=== PATIENT | female | born 1975 | race African-American/Black ===

== ENCOUNTER 2024-06-23 19:12 | Inpatient (IN) | payer OTHER ==
[~2024-06-23] VITALS: Ht 180.3 cm; Wt 132.3 kg
--- NOTE | 2024-06-23 19:40 | ED.PDOC ---
SOB-HPI HPI Comments HPI: Poor Historian. 49 y.o female presents to the ED for a chief complaint of SOB, wheezing, and dry cough that presented 2-3 days ago. Patient reports SOB worsens when laying flat and complains of upper back pain as well. Patient presents to the ED with SPO2 of 95% room air. She denies any nausea, vomiting, diarrhea, chills, chest pain. Patient tried her son's inhaler last night. Patient ambulates with a cane due to hx of neuropathy. Vitals Temperature: 99.6 F Heart rate: 115 Blood Pressure: 126/86 SPO2: 95% RA RR: 24 Past medical history: DM, HTN, peripheral neuropathy Past surgical history: REVIEW OF SYSTEMS: CONSTITUTIONAL: Denies acute: fever, diaphoresis, chills, generalized weakness. HEAD: Denies acute: headache, photophobia Eyes: Denies acute: Double vision, vision loss, eye pain, eye discharge. EARS: Denies acute: tinnitus, hearing loss, ear discharge, ear pain, THROAT: Denies acute: sore throat, swelling, difficulty swallowing , pain with swallowing, change in voice. NECK: Denies acute: neck pain, neck swelling, stiff neck. HEART: Denies acute : chest pain, palpitations, LUNGS: Denies acute: hemoptysis ABDOMEN: Denies acute: abdominal pain, Nausea, Vomiting, diarrhea, melena , hematemesis, hematochezia SKIN: Denies acute: rash, redness, lesions, itchiness. EXTREMITIES: Denies acute: calf pain, numbness, tingling, weakness, denies pain in extremity. Denies acute: Low back pain. Neuro: Denies acute: focal neurological deficit, motor or sensory focal neurological deficit, tremors, seizure like activity, confusion, dizziness, change in mental status, loss of bowel or bladder function, cauda equina like symptoms. : Denies acute: dysuria, hematuria, flank pain, increase in urinary frequency. PSYCH: Denies acute: hallucination, suicidal ideation, homicidal ideation. FEMALE: Denies acute: abnormal vaginal bleeding, foul odor, unusual discharge. PHYSICAL EXAM: General: no acute distress, awake and alert. Head: normocephalic, atraumatic. Neck: supple, trachea is midline, no swelling. Throat: Normal phonation. Eyes:, no erythema, no purulent discharge, no proptosis, no icterus. Heart: regular tachycardic, no significant murmur appreciated. Lungs: no apparent respiratory distress, Able to speak in full sentences. No wheezing, noted bilateral rhonchi, no crackles. No stridors Abdomen: non tender to palpation, non distended, soft, no guarding, no rebound, + bowel sounds. Obese. Neuro: Awake, Alert, oriented to name, self, situation, follows commands GCS=15. Speech is normal. Skin: no petechia, no purpura, no cyanosis, non-pale, not jaundice. Lower extremities: --no - Pitting edema no deformity, no focal swelling, no calf TTP. Makes eye contact. moves all four extremities. Face: no apparent facial droop. Ambulating in the ED with a cane and a wheelchair. ED course: As of this time 9:45 p.m.,, patient CMP is still pending. Time Seen by MD: 19:30 Reviewed notes: Nurses Notes, Allergies Information Source: Patient Mode of Arrival: Wheelchair Severity: Moderate Past Medical History PAST MEDICAL HISTORY: DM, HTN Past Medical History (Other): peripheral neuropathy Was a procedure done? Was a procedure done?: No Differential Dx Differential Diagnosis: Asthma, Bronchitis, Pneumonia, Respiratory Distress, URI, Other (DDx include ACS, unstable angina, anxiety, PE, pneumothroax, neoplasm, cardiac ischemia, COPD, asthma, CHF, pleural effusion, tobacco abuse, pneumonia, hypoxia, hypercapnia, anemia., infection/sepsis., pulmonary edema. Asthma, Cardiac tamponade, infection.) X-Ray, Labs, Meds, VS Vital Signs Date Time Temp Pulse Resp B/P (MAP) Pulse Ox O2 Delivery O2 Flow Rate FiO2 06/23/24 21:19 114 18 107/68 (81) 96 06/23/24 21:17 107/68 06/23/24 21:06 Room Air* 0 21 06/23/24 20:36 122 16 149/86 (107) 100 06/23/24 19:56 20 98 Cool Aerosol 8 N/A 06/23/24 19:47 116 06/23/24 19:30 99.6 115 24 126/68 (87) 95 Lab Test 06/23/24 23:12 06/23/24 21:54 06/23/24 21:40 06/23/24 21:11 Range/Units Troponin I High Sensitivity 16 18 </=34 ng/L Beta HCG, Quantitative 0.5 L 1.5-4.2 mIU/mL Blood Gas Specimen Type Arterial Blood Gas Sample Site Right radial Blood Gas Patient Temperature 37.0 Arterial Blood Date Drawn [id number] Arterial Blood pH 7.414 7.350-7.450 Arterial Blood Partial Pressure CO2 36.7 32.0-45.0 mmHg Arterial Blood Partial Pressure O2 59.2 L 83.0-108.0 mmHg Arterial Blood HCO3 23.0 21.0-28.0 mmol/L Arterial Blood Oxygen Saturation 89.6 L 94.0-98.0 % Arterial Blood Base Excess -1.2 -2.0-3.0 mmol/L Arterial Blood Oxyhemoglobin 88.3 L 94.0-98.0 % Arterial Blood Carboxyhemoglobin 1.0 0.5-1.5 % Arterial Blood Methemoglobin 0.4 0.0-1.5 % Renato Test Modified Blood Gas Total Hemoglobin 13.20 12.0-16.0 g/dL Blood Gas Liter Flow 0.00 Blood Gas Modality Room air Blood Gas Spontaneous Rate 18 FiO2 % 21.0 Specimen Drawn By Moe willis rt Urine Color Light-yellow Yellow Urine Clarity Clear Clear Urine pH 5.0 5.0-9.0 Urine Specific [place] 1.016 1.001-1.035 Urine Protein Negative Negative Urine Ketones Negative Negative Urine Blood Negative Negative /uL Urine Nitrite Negative Negative Urine Bilirubin Negative Negative Urine Urobilinogen Normal Negative mg/dL Urine Leukocyte Esterase Negative Negative /uL Urine RBC 1 0 - 4 /hpf Urine WBC 2 0 - 5 /hpf Urine Squamous Epithelial Cells Few <5 /hpf Urine Bacteria Few H None Seen /hpf Urine Mucus Few None Seen Urine Glucose Normal Normal mg/dL D-Dimer, Quantitative 0.30 0.0-0.49 mg/L FEU Sodium Level 139 136-145 mmol/L Potassium Level 4.4 3.5-5.1 mmol/L Chloride Level 108 H 98-107 mmol/L Carbon Dioxide Level 23 20-31 mmol/L Anion Gap 8 5-15 Blood Urea Nitrogen 7 L 9-23 mg/dL Creatinine 0.79 0.550-1.02 mg/dL Glomerular Filtration Rate Calc 91 >90 mL/min BUN/Creatinine Ratio 8.9 L 10.0-20.0 Serum Glucose 139 H 74-106 mg/dL Calcium Level 10.5 H 8.7-10.4 mg/dL Total Bilirubin 0.3 0.2-1.0 mg/dL Aspartate Amino Transferase (AST) 26 13-40 U/L Alanine Aminotransferase (ALT) 22 7-40 U/L Alkaline Phosphatase 77 46-116 U/L Total Protein 7.0 5.7-8.2 g/dL Albumin 4.4 3.2-4.8 g/dL Test 06/23/24 20:15 06/23/24 19:38 Range/Units White Blood Count 9.6 4.4-10.8 10^3/uL Red Blood Count 4.30 4.0-5.20 10^6/uL Hemoglobin 12.2 12.2-16.2 g/dL Hematocrit 37.4 36.0-46.0 % Mean Corpuscular Volume 87.0 80.0-100.0 fL Mean Corpuscular Hemoglobin 28.4 28.0-32.0 pg Mean Corpuscular Hemoglobin Concent 32.7 32.0-36.0 g/dL Red Cell Distribution Width 15.3 H 11.8-14.3 % Platelet Count 348 140-450 10^3/uL Mean Platelet Volume 10.3 6.9-10.8 fL Neutrophils (%) (Auto) 70.2 37.0-80.0 % Lymphocytes (%) (Auto) 18.0 10.0-50.0 % Monocytes (%) (Auto) 9.0 0.0-12.0 % Eosinophils (%) (Auto) 2.3 0.0-7.0 % Basophils (%) (Auto) 0.5 0.0-2.0 % Neutrophils # (Auto) 6.8 1.6-8.6 10 ^3/uL Lymphocytes # (Auto) 1.7 0.4-5.4 10 ^3/uL Monocytes # (Auto) 0.9 0-1.3 10 ^3/uL Eosinophils # (Auto) 0.2 0-0.8 10 ^3/uL Basophils # (Auto) 0.1 0-0.2 10 ^3/uL Nucleated Red Blood Cells 0.0 % Lactic Acid Level 2.3 *H 0.4-2.0 mmol/L Troponin I High Sensitivity 19 </=34 ng/L B-Type Natriuretic Peptide 12.23 0-100 pg/mL Influenza Type A Antigen Negative Negative Influenza Type B Antigen Negative Negative SARS-CoV-2 Antigen (Rapid) Negative NEGATIVE [facility] [id number] [place] [address] Ph: [phone] DIAGNOSTIC IMAGING Diagnostic Imaging Report : [id number] Signed PATIENT: JEFFERY COOK ACCT: [id number] UNIT: [id number] : 1975 LOC: ER ROOM / BED: / AGE / SEX: 49 / F ADM STATUS: REG ER SERVICE 26 ORDERING PHYSICIAN: RACHELLE DIAMOND DO PROCEDURE(s): CXRP - CHEST PORTABLE REASON: sob ORDER NUMBER(s): [id number], ACCESSION NUMBER(s): [id number] CHEST RADIOGRAPH Indication: sob Technique: Single frontal view of the chest was obtained Comparison: None FINDINGS: Lines and Tubes: None Lungs: Diffuse interstitial prominence. Linear densities of the right lower lung zone. Indistinctness of the left hemidiaphragm. No pneumothorax. Cardiomediastinal contours: Mild cardiomegaly. Bones: No acute osseous abnormality. Cervical fixation hardware is noted. IMPRESSION: Mild pulmonary vascular congestion with right lower lung zone atelectasis. Possible trace left-sided pleural effusion. ATED BY: ELI EPREZ DO DICTATED DATE/TIME: 06/23/242034 SIGNED BY: ELI PEREZ DO SIGNED DATE/TIME: 06/23/242034 CC: Time of 1ST Reevaluation: 19:36 Reevaluation 1ST: Unchanged Patient Education/Counseling: Diagnosis, Treatment Family Education/Counseling: Other Comments Patient presented with the above HPI. shortness of breath-workup was initiated. patient was found with the above mentioned diagnosis. the following medications were ordered: methylprednisolone, ipratropium med neb, albuterol the following tests were ordered: rapid influenza A&B tests, covid19 test, troponin, urinalysis, lactic acid, CMP, CBC, BNP, EKG, CXR Patient ED course and VS have been stabilized. Patient has been reassessed in the ED and remained in a stable condition. Pertinent incidental findings were discussed with the patient and/or family. Patient/family voices understanding and is agreeable with plan. Patient has been observed in the ED adequate length of time to insure improvement/stability. Escalation of care considered: Consideration of escalation to observation or admission Patient was ADMITTED to the medicine team for further evaluation and treatment of their presentation. All the reports of any imaging studies that were ordered by myself were reviewed by myself. Departure 1 Departure Time of Disposition: 21:44 Impression: Primary Impression: Dyspnea Additional Impressions: Abnormal EKG T wave inversion in EKG Hypoxemia Disposition: ADMITTED INPATIENT Admit to: Tele Condition: Guarded e-Prescriptions Gabapentin (Gabapentin) 300 Mg Cap 1 CAP PO TID for 30 Days, #90 CAP Prov: ASPEN GONSALVES RESIDENT 06/25/24 Levofloxacin Hemihydrate (LEVOFLOXACIN) 750 Mg Tab 1 TAB PO DAILY for 5 Days, #5 TAB Prov: ASPEN GONSALVES RESIDENT 06/25/24 Discharged With: Self Critical Care Note Critical Care Time?: Yes (45 min-critical care time only) I personally scribed for RACHELLE DIAMOND DO ([email or web address]) on 06/23/24 at 19:40. El ectronically submitted by Yael Wolfe ([facility]). I personally scribed for RACHELLE DIAMOND J DO ([email or web address]) on 06/23/24 at 20:07. Elect ronically submitted by Yael Wolfe ([facility]). I personally scribed for RACHELLE DIAMOND J DO ([email or web address]) on 06/23/24 at 20:27. Electronically submitted by Koby Daniels ([email or web address]). I personally scribed for RACHELLE DIAMOND J DO ([email or web address]) on 06/23/24 at 23:25. Elect ronically submitted by Koby Daniels ([email or web address]). I personally scribed for RACHELLE DIAMOND J DO ([email or web address]) on 06/23/24 at 23:26. El ectronically submitted by Koby Daniels ([email or web address]). I personally scribed for CHICO DIAMONDE J DO ([email or web address]) on 06/24/24 at 20:50. Electronically submitted by Koby Daniels ([email or web address]). RACHELLE DIAMOND DO Jun 23, 2024 19:40
--- NOTE | 2024-06-23 19:49 | ECG ---
[facility] Test Date: 2024-06-23 Test Time: 19:47:56 Pat Name: JEFFERY COOK Department: DARA Room: [address] [place] [address] Gender: F Design Drafter Chief: NARGIS : 1975 Requested By: RACHELLE DIAMOND Order Number: [id number] Reading MD: Michael Krishnan Measurements Intervals Plato Rate: 116 P: 75 IN: 175 QRS: 86 QRSD: 78 T: -68 QT: 293 QTc: 407 Interpretive Statements Sinus tachycardia Nonspecific T abnormalities, inferior leads Baseline wander in lead(s) V2 Electronically Signed On 06-26-2024 16:33:36 PST by Michael Krishnan Please click the below link to view image of tracing.
[2024-06-23] MEDS: IPRATROPIUM BROM 0.5 MG/2.5ML INH SOL NEB ONE (19:55)
[2024-06-23] MEDS: ALBUTEROL SULF 2.5 MG/0.5ML(0.5%) NEB SOLN NEB ONE (19:55)
[2024-06-23] MEDS: methylPREDNISolone SOD SUCC 125 MG/2 ML VL IV ONE (20:19)
[2024-06-23 20:27] LABS: Basophils # (auto) 0.1 10 ^3/uL (0-0.2); Basophils % (auto) 0.5 % (0.0-2.0); Eosinophils # (auto) 0.2 10 ^3/uL (0-0.8); Eosinophils % (auto) 2.3 % (0.0-7.0); Hematocrit 37.4 % (36.0-46.0); Hemoglobin 12.2 g/dL (12.2-16.2); Lymphocytes # (auto) 1.7 10 ^3/uL (0.4-5.4); Mean Corpuscular Hemoglobin 28.4 pg (28.0-32.0); Mean Corpuscular Hgb Conc. 32.7 g/dL (32.0-36.0); Monocytes # (auto) 0.9 10 ^3/uL (0-1.3); Neutrophils # (auto) 6.8 10 ^3/uL (1.6-8.6); Neutrophils % (auto) 70.2 % (37.0-80.0); Platelet Count (auto) 348 10^3/uL (140-450); Red Cell Distribution Width 15.3 % (11.8-14.3); White Blood Cell 9.6 10^3/uL (4.4-10.8)
--- NOTE | 2024-06-23 20:38 | DVH ---
CHEST RADIOGRAPH Indication: sob Technique: Single frontal view of the chest was obtained Comparison: None FINDINGS: Lines and Tubes: None Lungs: Diffuse interstitial prominence. Linear densities of the right lower lung zone. Indistinctness of the left hemidiaphragm. No pneumothorax. Cardiomediastinal contours: Mild cardiomegaly. Bones: No acute osseous abnormality. Cervical fixation hardware is noted. IMPRESSION: Mild pulmonary vascular congestion with right lower lung zone atelectasis. Possible trace left-sided pleural effusion.
[2024-06-23 21:03] LABS: Lactic Acid w/Reflex 2.3 mmol/L (0.4-2.0)
[2024-06-23 21:14] LABS: COVID19 ANTIGEN SOFIA FIA NEGATIVE (NEGATIVE)
[2024-06-23 21:15] LABS: Rapid Influenza A Negative (Negative); Rapid Influenza B Negative (Negative)
[2024-06-23] MEDS: FUROSEMIDE 40 MG/4 ML VIAL IV ONE (21:17)
[2024-06-23 21:59] LABS: Alanine Aminotransferase 22 U/L (7-40); Albumin 4.4 g/dL (3.2-4.8); Alkaline Phosphatase 77 U/L (46-116); Anion Gap 8 (5-15); Aspartate Aminotransferase 26 U/L (13-40); BUN/Creatinine Ratio 8.9 (10.0-20.0); Bilirubin, Total 0.3 mg/dL (0.2-1.0); Blood Urea Nitrogen 7 mg/dL (9-23); Calcium 10.5 mg/dL (8.7-10.4); Carbon Dioxide 23 mmol/L (20-31); Chloride 108 mmol/L (98-107); Glucose 139 mg/dL (74-106); Potassium 4.4 mmol/L (3.5-5.1); Sodium 139 mmol/L (136-145)
[2024-06-23 21:59] LABS: Base Excess -1.2 mmol/L (-2.0-3.0)
[2024-06-23 22:29] LABS: Urine Bacteria FEW /hpf (None Seen); Urine Blood Negative /uL (Negative); Urine Clarity Clear (Clear); Urine Color Light-Yellow (Yellow); Urine Mucus FEW (None Seen); Urine Protein, UAD Negative (Negative); Urine Specific Gravity 1.016 (1.001-1.035); Urine Squamous Epithelial Cell FEW /hpf (<5); Urine Urobilinogen Normal (Negative); Urine WBC 2 /hpf (0 - 5)
--- NOTE | 2024-06-23 23:36 | DVHHPRES ---
History of Present Illness Resident Creating Document: SAMRA COLES RESIDENT History of Present Illness Patient is 49-year-old female with past medical history of hypertension, diabetes mellitus, atrial fibrillation, COVID infection who came to the hospital with a chief complain of worsening shortness of breath, dry cough for past one day. As per patient, patient also has flu-like symptoms with ear fullness, mild sore throat however patient denied fever or sputum production. Patient also complaining of shortness of breath worsened with lying down, never had similar kind of issue before. Patient denied exertional chest pain. As per patient she followed with Cardiology three four years ago where she was cleared however she was diagnosed with atrial fibrillation and taking anticoagulation Xarelto and digoxin for it. Patient denied any other symptom at this point. Past medical history: Hypertension, diabetes mellitus, atrial fibrillation, coronary infection. Past surgical history: Cholecystectomy, Social history: Patient admitting smoking cigarettes Allergy: Iodine, ibuprofen, penicillin, codeine Past Surgical History: None Family History: None Smoke: # pack years ALCOHOL: none Drugs: None Lives: with Family Domestic Violence: Neg Review of Systems Constitutional: No: Fever, Chills, Sweats, Weakness, Malaise, Other Eyes: No: Pain, Vision change, Conjunctivae inflammation, Eyelid inflammation, Other, Redness ENT: No: Ear pain, Ear discharge, Nose pain, Nose discharge, Nose congestion, Mouth pain, Mouth swelling, Throat pain, Throat swelling, Other Respiratory: Cough, Dry, Shortness of breath, SOB with excertion, Wheezing Cardiovascular: No: Chest Pain, Palpitations, Orthopnea, Paroxysmal Noc. Dyspnea, Edema, Lt Headedness, Other Gastrointestinal: No: Nausea, Vomiting, Abdominal Pain, Diarrhea, Constipation, Melena, Hematochezia, Other Genitourinary: No Dysuria, No Frequency, No Incontinence, No Hematuria, No Retention, No Other Musculoskeletal: No: other, neck pain, shoulder pain, arm pain, back pain, hand pain, leg pain, foot pain Skin: No: Rash, Lesions, Jaundice, Bruising, Other Neurological: No: Weakness, Numbness, Incoordination, Change in speech, Confusion, Seizures, Other Allergies: Coded Allergies: Codeine (Verified Allergy, Unknown, 06/23/24) Ibuprofen (Verified Allergy, Unknown, 06/23/24) Iodine (Verified Allergy, Unknown, 06/23/24) Penicillins (Verified Allergy, Unknown, 06/23/24) Exam Vital Signs Vital Signs Date Time Temp Pulse Resp B/P (MAP) Pulse Ox O2 Delivery O2 Flow Rate FiO2 06/23/24 21:19 114 18 107/68 (81) 96 06/23/24 21:06 Room Air* 0 21 06/23/24 19:30 99.6 General Appearance: Alert, Oriented X3 HEENT: Atraumatic, PERRLA, EOMI Respiratory: Clear to auscultation, Normal air movement Cardiovascular: Regular rate, Normal S1, Normal S2 Abdominal: Normal bowel sounds, Soft, No tenderness Extremities: No clubbing, No cyanosis, No edema Skin: No rashes, No breakdown Neuro: Normal gait, Normal speech, Strength at 5/5 X4 ext Psych/Mental Status: Mental status NL, Mood NL Labs/Xrays Labs Test 06/23/24 23:12 06/23/24 21:54 06/23/24 21:40 06/23/24 21:11 Range/Units Blood Gas Specimen Type Arterial Blood Gas Sample Site Right radial Blood Gas Patient Temperature 37.0 Arterial Blood Date Drawn [id number] Arterial Blood pH 7.414 7.350-7.450 Arterial Blood Partial Pressure CO2 36.7 32.0-45.0 mmHg Arterial Blood Partial Pressure O2 59.2 L 83.0-108.0 mmHg Arterial Blood HCO3 23.0 21.0-28.0 mmol/L Arterial Blood Oxygen Saturation 89.6 L 94.0-98.0 % Arterial Blood Base Excess -1.2 -2.0-3.0 mmol/L Arterial Blood Oxyhemoglobin 88.3 L 94.0-98.0 % Arterial Blood Carboxyhemoglobin 1.0 0.5-1.5 % Arterial Blood Methemoglobin 0.4 0.0-1.5 % Renato Test Modified Blood Gas Total Hemoglobin 13.20 12.0-16.0 g/dL Blood Gas Liter Flow 0.00 Blood Gas Modality Room air Blood Gas Spontaneous Rate 18 FiO2 % 21.0 Specimen Drawn By Moe willis rt Urine Color Light-yellow Yellow Urine Clarity Clear Clear Urine pH 5.0 5.0-9.0 Urine Specific [place] 1.016 1.001-1.035 Urine Protein Negative Negative Urine Ketones Negative Negative Urine Blood Negative Negative /uL Urine Nitrite Negative Negative Urine Bilirubin Negative Negative Urine Urobilinogen Normal Negative mg/dL Urine Leukocyte Esterase Negative Negative /uL Urine RBC 1 0 - 4 /hpf Urine WBC 2 0 - 5 /hpf Urine Squamous Epithelial Cells Few <5 /hpf Urine Bacteria Few H None Seen /hpf Urine Mucus Few None Seen Urine Glucose Normal Normal mg/dL Sodium Level 139 136-145 mmol/L Potassium Level 4.4 3.5-5.1 mmol/L Chloride Level 108 H 98-107 mmol/L Carbon Dioxide Level 23 20-31 mmol/L Anion Gap 8 5-15 Blood Urea Nitrogen 7 L 9-23 mg/dL Creatinine 0.79 0.550-1.02 mg/dL Glomerular Filtration Rate Calc 91 >90 mL/min BUN/Creatinine Ratio 8.9 L 10.0-20.0 Serum Glucose 139 H 74-106 mg/dL Calcium Level 10.5 H 8.7-10.4 mg/dL Total Bilirubin 0.3 0.2-1.0 mg/dL Aspartate Amino Transferase (AST) 26 13-40 U/L Alanine Aminotransferase (ALT) 22 7-40 U/L Alkaline Phosphatase 77 46-116 U/L Total Protein 7.0 5.7-8.2 g/dL Albumin 4.4 3.2-4.8 g/dL Test 06/23/24 20:15 06/23/24 19:38 Range/Units White Blood Count 9.6 4.4-10.8 10^3/uL Red Blood Count 4.30 4.0-5.20 10^6/uL Hemoglobin 12.2 12.2-16.2 g/dL Hematocrit 37.4 36.0-46.0 % Mean Corpuscular Volume 87.0 80.0-100.0 fL Mean Corpuscular Hemoglobin 28.4 28.0-32.0 pg Mean Corpuscular Hemoglobin Concent 32.7 32.0-36.0 g/dL Red Cell Distribution Width 15.3 H 11.8-14.3 % Platelet Count 348 140-450 10^3/uL Mean Platelet Volume 10.3 6.9-10.8 fL Neutrophils (%) (Auto) 70.2 37.0-80.0 % Lymphocytes (%) (Auto) 18.0 10.0-50.0 % Monocytes (%) (Auto) 9.0 0.0-12.0 % Eosinophils (%) (Auto) 2.3 0.0-7.0 % Basophils (%) (Auto) 0.5 0.0-2.0 % Neutrophils # (Auto) 6.8 1.6-8.6 10 ^3/uL Lymphocytes # (Auto) 1.7 0.4-5.4 10 ^3/uL Monocytes # (Auto) 0.9 0-1.3 10 ^3/uL Eosinophils # (Auto) 0.2 0-0.8 10 ^3/uL Basophils # (Auto) 0.1 0-0.2 10 ^3/uL Nucleated Red Blood Cells 0.0 % Lactic Acid Level 2.3 *H 0.4-2.0 mmol/L B-Type Natriuretic Peptide 12.23 0-100 pg/mL Influenza Type A Antigen Negative Negative Influenza Type B Antigen Negative Negative SARS-CoV-2 Antigen (Rapid) Negative NEGATIVE Assessment/Plan Assessment/Plan Pneumonia Gram-positive versus negative Acute respiratory distress Paroxysmal atrial fibrillation Lactic acidosis Flu-like symptom Essential hypertension Diabetes mellitus type 2 Morbid obesity Plan/recommendation -IV antibiotic with ceftriaxone, azithromycin. CT scan of the chest is pending. D-dimer below 0.5. Less likely pulmonary embolism. -pending respiratory culture, blood culture, follow with lactic acid level, given 0.5 L bolus of NS. -breathing treatment with ipratropium bromide and albuterol. -continue home medication for atrial fibrillation: Digoxin, metoprolol, Xarelto. -insulin sliding scale for diabetes mellitus type 2 -Counseled on lifestyle modifications, advised on DASH diet, decrease salt consumption to <1.5g. Perform exercise as tolerated, goal is 150min/week, mode rate intensity. -PUD prophylaxis with Protonix -DVT prophylaxis with Xarelto Goals of care discussed greater than 22 minutes, full code. Plan discussed with Dr. Haque Plan discussed with: Patient, Spouse (RN) My Orders Orders - SAMRA COLES Procedure Category Date Status Time Admit ADMIT 06/23/24 Verified 23:31 Morphine Sulfate PHA 06/23/24 Verified Injection 23:45 Date of Service: Jun 23, 2024 Billing Provider: GAETANO HAQUE MD Common Visit Codes: [id number] INP/OBS CARE (HIGH) SAMRA COLES Jun 23, 2024 23:36 GAETANO HAQUE MD Jun 24, 2024 17:48
[2024-06-23] MEDS ORDERED: MORPHINE SULFATE INJ 2 MG/ml SYRG IV PRN (23:45)
[2024-06-23] MEDS ORDERED: NITROGLYCERIN 0.4 MG SL TAB SL PRN (23:45)
[2024-06-23] MEDS: cefTRIAXone 1GM/50ML D5W 50 ML IV ONE (23:45)
[2024-06-24] VITALS (7 sets, daily range): BP systolic 105–118; BP diastolic 60–77; PULSE 69–98; RESP 16–81; TEMP 97.6–98.5; O2SAT 92–98
[2024-06-24] MEDS: AZITHROMYCIN 250 MG TAB PO ONE (02:00)
[2024-06-24] MEDS: SODIUM CHLORIDE 0.9% 500 ML IV ONE ×2 (05:00→14:45)
[2024-06-24] MEDS ORDERED: DEXTROSE (50%) 50ML SYRG IV PRN (05:00)
[2024-06-24] MEDS: PANTOPRAZOLE 40 MG TAB PO SCH (05:15)
[2024-06-24] MEDS: ALBUTEROL SULF 2.5 MG/0.5ML(0.5%) NEB SOLN NEB SCH (06:38)
[2024-06-24] MEDS: IPRATROPIUM BROM 0.5 MG/2.5ML INH SOL NEB SCH (06:38)
[2024-06-24] MEDS: ACCU-CHEK COMFORT CURVE STRIP VI SCH (06:48)
[2024-06-24] MEDS: InsuLIN REG 1unit/0.01ml Soln (100units/ml) SC SCH (06:53)
--- NOTE | 2024-06-24 07:23 | DVH ---
Procedure: CT CHEST WITHOUT CONTRAST Reason for study/Clinical History: Pneumonia Comparison Study: Chest radiograph 06/23/2024. Exam Date: 06/24/2024 06:17 AM TECHNIQUE: Multidetector CT of the chest was performed from the lung apices to the upper abdomen with out the use of intravenous contract. Axial, coronal and sagittal multiplanar reformats were performed . Radiation Dose Information: CT Dose: CTDI volume is 30.56 mGy. Dose-length product is 1165.0 mGy*cm The dose indicators for CT are the volume Computed Tomography (CT) Dose Index (CTDIvol) and the Dose Length Product (DLP), and are measured in units of mGy and mGy-cm, respectively. These indicators are not patient dose, but values generated from the CT scanner acquisition factors. The report includes radiation exposure data for exposures received during this examination. FINDINGS: Lower neck: Normal thyroid. Lungs: Diffuse ground-glass opacities in the right upper, middle and lower lobes. Trachea and central airways: Patent. Pleura: No pleural effusion or pneumothorax. Heart/Vascular Structures: Normal heart size. No pericardial effusion. Lymph Nodes: No adenopathy Musculoskeletal: No acute osseous abnormality. Multilevel thoracic spondylosis. Soft tissues: Normal. Upper abdomen: Cholecystectomy. IMPRESSION: 1. Right middle, upper and lower lobe pneumonia. 2. Cholecystectomy. Radiation optimization: All CT scans at this facility use at least one of these dose optimization lurdes hniques: automated exposure control mA and/or kV adjustment per patient size (includes targeted exam s where dose is matched to clinical indication) or iterative reconstruction.
[2024-06-24] MEDS: SODIUM CHLORIDE 0.9% 1,000 ML IV SCH (08:00)
[2024-06-24 08:38] LABS: Chloride 103 mmol/L (98-107); Potassium 4.4 mmol/L (3.5-5.1); Sodium 136 mmol/L (136-145)
[2024-06-24 08:39] LABS: Anion Gap 9 (5-15); Calcium 10.1 mg/dL (8.7-10.4); Carbon Dioxide 24 mmol/L (20-31)
[2024-06-24 08:44] LABS: BUN/Creatinine Ratio 10.8 (10.0-20.0); Blood Urea Nitrogen 10 mg/dL (9-23)
[2024-06-24 08:52] LABS: Glucose 237 mg/dL (74-106)
[2024-06-24 08:56] LABS: Lactic Acid w/Reflex 3.4 mmol/L (0.4-2.0)
[2024-06-24] MEDS: METOPROLOL SUCCINATE XL 50 MG TAB PO SCH (09:57)
[2024-06-24] MEDS: DIGOXIN 0.125 MG TAB PO SCH (09:57)
[2024-06-24] MEDS ORDERED: ENOXAPARIN SOD 40 MG/0.4 ML SYRINGE SC SCH (10:00)
[2024-06-24 11:32] LABS: Lactic Acid w/Reflex 2.4 mmol/L (0.4-2.0)
--- NOTE | 2024-06-24 11:53 | DVHPNRES ---
Progress Note Date Seen: Jun 24, 2024 Resident Creating Document: ASPEN GONSALVES RESIDENT Medical Necessity Reason Pt with a Central, PICC or Fol: No Subjective Review of Systems This is a 49-year-old female with past medical history of hypertension, diabetes mellitus, atrial fibrillation, COVID infection who came to the hospital with a chief complain of worsening shortness of breath, dry cough for past one day. As per patient, patient also has flu-like symptoms with ear fullness, mild sore throat however patient denied fever or sputum production. and examined on the bedside. she is alert oriented x3. No overnight complaints and mentioned improvement of shortness of breath. Constitutional: No: Fever, Chills, Sweats, Weakness, Malaise, Other Eyes: No: Pain, Vision change, Conjunctivae inflammation, Eyelid inflammation, Other, Redness ENT: No: Ear pain, Ear discharge, Nose pain, Nose discharge, Nose congestion, Mouth pain, Mouth swelling, Throat pain, Throat swelling, Other Respiratory: Shortness of breath, improving No: Cough, Dry,Wheezing, Hemoptysis, Pleuritic Pain, Sputum, Wheezing, Other Cardiovascular: No: Chest Pain, Palpitations, Orthopnea, Paroxysmal Noc. Dyspnea, Edema, Lt Headedness, Other Gastrointestinal: No: Nausea, Vomiting, Abdominal Pain, Diarrhea, Constipation, Melena, Hematochezia, Other Musculoskeletal: No: other, neck pain, shoulder pain, arm pain, back pain, hand pain, leg pain, foot pain Neurological:; No: Weakness, Numbness, Incoordination, Change in speech, Confusion, Seizures Objective vital signs Vital Sign Date Time Temp Pulse Resp B/P (MAP) Pulse Ox O2 Delivery O2 Flow Rate FiO2 06/24/24 09:57 79 06/24/24 09:57 113/61 06/24/24 09:15 81 96 0.0 21 06/24/24 08:02 97.6 97.6 06/24/24 06:39 Room Air* Total Intake and Output 06/23/24 06/23/24 06/24/24 15:00 23:00 07:00 Intake Total 240 ml Balance 240 ml medications Current Medications Medications Dose Ordered Sig/Zoey Route Start Time Stop Time Status Last Admin Dose Admin Morphine Sulfate 2 mg Q30M PRN IV 06/23/24 23:45 Nitroglycerin 0.4 mg Q5MINP PRN SL 06/23/24 23:45 Ceftriaxone Sodium 50 ml @ 100 mls/hr DAILY@09 IV 06/25/24 09:00 Azithromycin 500 mg DAILY PO 06/25/24 10:00 Pantoprazole Sodium 40 mg DAILY@0600 PO 06/24/24 06:00 06/24/24 05:15 40 MG Ipratropium [place] 0.5 mg Q6HR NEB 06/24/24 06:00 06/24/24 06:38 0.5 MG Albuterol 2.5 mg Q6HR NEB 06/24/24 06:00 06/24/24 06:38 2.5 MG Metoprolol Succinate 25 mg DAILY PO 06/24/24 10:00 06/24/24 09:57 25 MG Rivaroxaban 20 mg QPM PO 06/24/24 18:00 Digoxin 0.125 mg DAILY PO 06/24/24 10:00 06/24/24 09:57 0.125 MG Diagnostic Test (Pha) 1 strip ACHS 06/24/24 07:00 06/24/24 06:48 1 STRIP Insulin Human Regular ACHS SC 06/24/24 07:00 06/24/24 06:53 3 UNITS Dextrose 50 ml UD PRN IV 06/24/24 05:00 Sodium Chloride 1,000 ml @ 100 mls/hr Q10H IV 06/24/24 08:00 06/24/24 08:00 100 MLS/HR Examination Physical examination: General Appearance: Alert, Oriented X3, Cooperative, No acute distress HEENT: Atraumatic, PERRLA, EOMI, Mucous membrane moist/pink Respiratory: Decreased breath sound on rt side and basal crackles. vesicular breath sound on lt side. Cardiovascular: Regular rate, Normal S1, Normal S2, No murmurs, no chest wall tenderness Abdominal: Normal bowel sounds, Soft, No tenderness, No hepatospenomegaly, No masses Extremities: No clubbing, No cyanosis, No edema, Normal pulses, No tenderness/swelling Skin: No rashes, No breakdown, No significant lesion Neuro: Normal gait, Normal speech, Strength at 5/5 X4 ext, Normal tone, Sensation intact, grossly intact cranial nerves Psych/Mental Status: Mental status NL, Mood NL Examination: GENERAL:Abnormal laboratory and microbiology Laboratory Tests 06/24/24 08:05 06/23/24 20:15 Test 06/24/24 08:05 Range/Units Serum Glucose 237 H 74-106 mg/dL Labs and/or images reviewed: Labs reviewed by me, Image(s) reviewed by me Problem List/Assessment/Plan Problem List/Assessment/Plan Assessment and plan: # Sepsis/SIRS due to community acquired Gram-positive versus Gram-negative pneumonia # Community acquired Gram-positive versus Gram-negative pneumonia - x-ray chest demonstrated mild pulmonary vascular congestion with right lower lung zone atelectasis. Possible trace left-sided pleural effusion. - CT chest without contrast revealed Right middle, upper and lower lobe pneumonia - IV normal saline @ 100 ml/hr - Lactic acid trends are 2.3>3.4>2.4 - DuoNeb with ipratropium and albuterol q.6 hours - IV ceftriaxone 1 g daily and azithromycin 500 mg po daily - Ordered blood culture and sputum C/S - Covid/Flu negative - Incentive spirometry # Paroxysmal atrial fibrillation with secondary hypercoagulable state [id number] score 3 - Continue metoprolol succinate 25 mg daily, digoxin 0.125 mg daily and Xarelto 20 mg PO at HS - Echo on 06/24/24 revealed EF 60% # Morbid obesity, BMI 39.7 kg/ m2 and history of obstructive sleep apnea - Counseled on lifestyle modifications, advised on DASH diet, decrease salt consumption to <1.5g. Perform exercise as tolerated, goal is 150min/week, moderate intensity - Ordered CPAP at night time. # Type 2 Diabetes melitus - Mild sliding scale of insulin. Diet: Consistent carbohydrate diet PUD prophylaxis: Protonix 40 mg po daily DVT prophylaxis: Xarelto Goal of care discussed with the patient for more than 20 minutes full code Plan discussed with Dr. [place] Plan discussed with: Patient, Other My Orders My Orders Orders - ASPEN GONSALVES Procedure Category Date Status Time Digoxin (Lanoxin) LAB 06/24/24 Logged 11:50 Bipap/Cpap For Sleep RT 06/24/24 Logged Apnea 11:50 Lactic Acid W/ Reflex LAB 06/24/24 Verified Order 03:00 Date of Service: Jun 24, 2024 Billing Provider: FRANCA AGOSTO MD Common Visit Codes: [id number] INP/OBS CARE(HIGH) ASPEN GONSALVES RESIDENT Jun 24, 2024 11:53 FRANCA AGOSTO MD Jun 26, 2024 12:57
--- NOTE | 2024-06-24 13:06 | DVHSR ---
APPROVED REPORT EXAM: Two-dimensional and M-mode echocardiogram with Doppler and color Doppler. Blood Pressure: 112/60 mmHg INDICATION CHF? RISK FACTORS Obesity: Height: 5'11", Weight: 284 DIMENSIONS LVDd4.6 (3.8-5.7cm)LA (2D)4.5 (1.9-4.0cm)Aortic Root2.9 (2.0-3.7cm) LVDs2.9 (2.5-4.0cm)LA (MM) (1.9-4.0cm)Aortic Cusp Exc1.8 (1.5-2.0cm) EF (%) 65.0 (55-70%)Rt. Atrium4.5 (1.9-4.0cm)Asc. Aorta cm IVSd1.3 (0.7-1.1cm)RV (D) (1.8-2.4cm) PWd1.3 (0.7-1.1cm) Mitral Valve MitralMitral Stenosis E wave1.02m/sMV Mean GR.mmHg A wave1.03m/sMV Peak GR.mmHg E/A ratio1.02D MVAcm2 DECEL [id number] 1/2 [place] Aortic Valve Aortic ValveAortic Stenosis V11.23m/Gisele Mean GR.4mmHg V21.54m/Gisele Peak GR.9mmHg LVOT Diameter2.0 (1.8-2.4cm)Doppler AVA2.51cm2 Other Information Technically limited study due to body habitus. Conclusion lvef 60% by vsual estimate normal rv function normal atria no severe valve abnormalities noted limited study- body habitus
[2024-06-24] MEDS: RIVAROXABAN 20 MG TAB PO SCH (18:37)
[2024-06-24] MEDS: MELATONIN 5 MG TAB PO ONE (23:41)
[2024-06-25] VITALS (13 sets, daily range): BP systolic 111–126; BP diastolic 51–68; PULSE 71–93; RESP 16–20; TEMP 36.3; O2SAT 94–100
[2024-06-25 06:22] LABS: Basophils # (auto) 0 10 ^3/uL (0-0.2); Basophils % (auto) 0.1 % (0.0-2.0); Eosinophils # (auto) 0.2 10 ^3/uL (0-0.8); Eosinophils % (auto) 2.1 % (0.0-7.0); Hematocrit 32.9 % (36.0-46.0); Hemoglobin 10.8 g/dL (12.2-16.2); Lymphocytes # (auto) 2.1 10 ^3/uL (0.4-5.4); Lymphocytes % (auto) 23.4 % (10.0-50.0); Mean Corpuscular Hemoglobin 28.3 pg (28.0-32.0); Mean Corpuscular Hgb Conc. 32.8 g/dL (32.0-36.0); Mean Corpuscular Volume 86.4 fL (80.0-100.0); Monocytes # (auto) 0.9 10 ^3/uL (0-1.3); Monocytes % (auto) 10.4 % (0.0-12.0); Neutrophils # (auto) 5.8 10 ^3/uL (1.6-8.6); Nucleated Red Blood Cells % 0.1 %; Platelet Count (auto) 314 10^3/uL (140-450); Red Blood Cells 3.81 10^6/uL (4.0-5.20); Red Cell Distribution Width 14.8 % (11.8-14.3); White Blood Cell 9.1 10^3/uL (4.4-10.8)
[2024-06-25 06:29] LABS: Anion Gap 6 (5-15); Carbon Dioxide 27 mmol/L (20-31); Potassium 3.8 mmol/L (3.5-5.1); Sodium 140 mmol/L (136-145)
[2024-06-25 06:30] LABS: Calcium 9.2 mg/dL (8.7-10.4)
[2024-06-25 06:35] LABS: BUN/Creatinine Ratio 12.9 (10.0-20.0); Blood Urea Nitrogen 9 mg/dL (9-23)
[2024-06-25 06:42] LABS: Chloride 107 mmol/L (98-107); Glucose 125 mg/dL (74-106)
[2024-06-25] MEDS: cefTRIAXone 1GM/50ML D5W 50 ML IV SCH (09:25)
[2024-06-25] MEDS: AZITHROMYCIN 250 MG TAB PO SCH (09:29)
[2024-06-25] MEDS ORDERED: ONDANSETRON HCL 4 MG/2 ML VIAL IV PRN (11:00)
[2024-06-25] MEDS ORDERED: LEVO750T40 PO (11:51)
[2024-06-25] MEDS ORDERED: GABA-1250 PO (14:49)
[2024-06-25] MEDS: GABAPENTIN 300 MG CAP PO ONE (15:08)
--- NOTE | 2024-06-25 15:26 | DVHDSRES ---
Discharge Summary Date of Admission Resident Creating Document: ASPEN GONSALVES RESIDENT Jun 23, 2024 at 23:31 Date of Discharge: Jun 25, 2024 Admitting Diagnosis Sepsis/SIRS due to community acquired Gram-positive versus Gram-negative pneumonia Wounds: No wound was present Labs/Diagnostic Data: Laboratory Results Test 06/25/24 11:51 06/25/24 06:00 06/24/24 08:05 06/23/24 23:12 POC Glucose 192 mg/dl (70-106) White Blood Count 9.1 10^3/uL (4.4-10.8) Red Blood Count 3.81 10^6/uL (4.0-5.20) Hemoglobin 10.8 g/dL (12.2-16.2) Hematocrit 32.9 % (36.0-46.0) Mean Corpuscular Volume 86.4 fL (80.0-100.0) Mean Corpuscular Hemoglobin 28.3 pg (28.0-32.0) Mean Corpuscular Hemoglobin Concent 32.8 g/dL (32.0-36.0) Red Cell Distribution Width 14.8 % (11.8-14.3) Platelet Count 314 10^3/uL (140-450) Mean Platelet Volume 10.1 fL (6.9-10.8) Neutrophils (%) (Auto) 64.0 % (37.0-80.0) Lymphocytes (%) (Auto) 23.4 % (10.0-50.0) Monocytes (%) (Auto) 10.4 % (0.0-12.0) Eosinophils (%) (Auto) 2.1 % (0.0-7.0) Basophils (%) (Auto) 0.1 % (0.0-2.0) Neutrophils # (Auto) 5.8 10 ^3/uL (1.6-8.6) Lymphocytes # (Auto) 2.1 10 ^3/uL (0.4-5.4) Monocytes # (Auto) 0.9 10 ^3/uL (0-1.3) Eosinophils # (Auto) 0.2 10 ^3/uL (0-0.8) Basophils # (Auto) 0 10 ^3/uL (0-0.2) Nucleated Red Blood Cells 0.1 % Sodium Level 140 mmol/L (136-145) Potassium Level 3.8 mmol/L (3.5-5.1) Chloride Level 107 mmol/L (98-107) Carbon Dioxide Level 27 mmol/L (20-31) Anion Gap 6 (5-15) Blood Urea Nitrogen 9 mg/dL (9-23) Creatinine 0.70 mg/dL (0.550-1.02) Glomerular Filtration Rate Calc 105 mL/min (>90) BUN/Creatinine Ratio 12.9 (10.0-20.0) Serum Glucose 125 mg/dL (74-106) Lactic Acid Level 1.0 mmol/L (0.4-2.0) Calcium Level 9.2 mg/dL (8.7-10.4) Digoxin Level 0.36 ng/mL (0.8-2) Troponin I High Sensitivity 16 ng/L (</=34) Beta HCG, Quantitative 0.5 mIU/mL (1.5-4.2) Test 06/23/24 21:54 06/23/24 21:40 06/23/24 21:11 06/23/24 20:15 Blood Gas Specimen Type Arterial Blood Gas Sample Site Right radial Blood Gas Patient Temperature 37.0 Arterial Blood Date Drawn [id number] Arterial Blood pH 7.414 (7.350-7.450) Arterial Blood Partial Pressure CO2 36.7 mmHg (32.0-45.0) Arterial Blood Partial Pressure O2 59.2 mmHg (83.0-108.0) Arterial Blood HCO3 23.0 mmol/L (21.0-28.0) Arterial Blood Oxygen Saturation 89.6 % (94.0-98.0) Arterial Blood Base Excess -1.2 mmol/L (-2.0-3.0) Arterial Blood Oxyhemoglobin 88.3 % (94.0-98.0) Arterial Blood Carboxyhemoglobin 1.0 % (0.5-1.5) Arterial Blood Methemoglobin 0.4 % (0.0-1.5) Renato Test Modified Blood Gas Total Hemoglobin 13.20 g/dL (12.0-16.0) Blood Gas Liter Flow 0.00 Blood Gas Modality Room air Blood Gas Spontaneous Rate 18 FiO2 % 21.0 Specimen Drawn By Moe willis rt Urine Color Light-yellow (Yellow) Urine Clarity Clear (Clear) Urine pH 5.0 (5.0-9.0) Urine Specific [place] 1.016 (1.001-1.035) Urine Protein Negative (Negative) Urine Ketones Negative (Negative) Urine Blood Negative /uL (Negative) Urine Nitrite Negative (Negative) Urine Bilirubin Negative (Negative) Urine Urobilinogen Normal mg/dL (Negative) Urine Leukocyte Esterase Negative /uL (Negative) Urine RBC 1 /hpf (0 - 4) Urine WBC 2 /hpf (0 - 5) Urine Squamous Epithelial Cells Few /hpf (<5) Urine Bacteria Few /hpf (None Seen) Urine Mucus Few (None Seen) Urine Glucose Normal mg/dL (Normal) D-Dimer, Quantitative 0.30 mg/L FEU (0.0-0.49) Total Bilirubin 0.3 mg/dL (0.2-1.0) Aspartate Amino Transferase (AST) 26 U/L (13-40) Alanine Aminotransferase (ALT) 22 U/L (7-40) Alkaline Phosphatase 77 U/L (46-116) Total Protein 7.0 g/dL (5.7-8.2) Albumin 4.4 g/dL (3.2-4.8) B-Type Natriuretic Peptide 12.23 pg/mL (0-100) Test 06/23/24 19:38 Influenza Type A Antigen Negative (Negative) Influenza Type B Antigen Negative (Negative) SARS-CoV-2 Antigen (Rapid) Negative (NEGATIVE) Other Laboratory Tests 06/25/24 06:00 Brief Hx & Hospital Course: This is a 49-year-old female with past medical history of hypertension, diabetes mellitus, atrial fibrillation, COVID infection who came to the hospital with a chief complain of worsening shortness of breath, dry cough for past one day. As per patient, patient also has flu-like symptoms with ear fullness, mild sore throat however patient denied fever or sputum production. Hospital course: Initially patient was presented with Sepsis/SIRS due to community acquired Gram-positive versus Gram-negative pneumonia. CT chest without contrast revealed Right middle, upper and lower lobe pneumonia. Patient was treated with DuoNeb with ipratropium and albuterol q.6 hours, IV ceftriaxone 1 g daily and IV and azithromycin 500 mg p.o. daily and resumed home meds metoprolol succinate 25 mg daily digoxin 10.125 mg daily and Xarelto 20 mg p.o. at HS and mild sliding scale of insulin to control blood sugar. Echo on 06/24/2024 revealed ejection fraction 60% and the patient has a history of obstructive sleep apnea and on CPAP at home. Patient was counseled on lifestyle modification advised on-diet, decrease salt consumption to less than 1.5 g, perform exercise as tolerated goal is 150 minute per week, moderate intensity and and put the patient CPAP at nighttime. Discharge plan was discussed with the patient and all questions were answered. Patient is being discharged to home. Discharge diagnosis: # Sepsis/SIRS due to community acquired Gram-positive versus Gram-negative pneumonia # Community acquired Gram-positive versus Gram-negative pneumonia # Paroxysmal atrial fibrillation with secondary hypercoagulable state # Morbid obesity, BMI 39.7 kg/ m2 and history of obstructive sleep apnea # Type 2 Diabetes melitus Discharge disposition: Home Medications: Levaquin 750 mg p.o. daily for 5 days, gabapentin 300 mg tid for 1 month and continue home medications. follow up : PCP in 1 week ] Consults/Reason for consult No consultation was done Operations or Procedures Procedure: CT CHEST WITHOUT CONTRAST Reason for study/Clinical History: Pneumonia Comparison Study: Chest radiograph 06/23/2024. Exam Date: 06/24/2024 06:17 AM TECHNIQUE: Multidetector CT of the chest was performed from the lung apices to the upper abdomen without the use of intravenous contract. Axial, coronal and sagittal multiplanar reformats were performed. Radiation Dose Information: CT Dose: CTDI volume is 30.56 mGy. Dose-length product is 1165.0 mGy*cm The dose indicators for CT are the volume Computed Tomography (CT) Dose Index (CTDIvol) and the Dose Length Product (DLP), and are measured in units of mGy and mGy-cm, respectively. These indicators are not patient dose, but values generated from the CT scanner acquisition factors. The report includes radiation exposure data for exposures received during this examination. FINDINGS: Lower neck: Normal thyroid. Lungs: Diffuse ground-glass opacities in the right upper, middle and lower lobes. Trachea and central airways: Patent. Pleura: No pleural effusion or pneumothorax. Heart/Vascular Structures: Normal heart size. No pericardial effusion. Lymph Nodes: No adenopathy Musculoskeletal: No acute osseous abnormality. Multilevel thoracic spondylosis. Soft tissues: Normal. Upper abdomen: Cholecystectomy. IMPRESSION: 1. Right middle, upper and lower lobe pneumonia. 2. Cholecystectomy. Condition at Discharge: Stable Final Diagnosis/Problems List # Sepsis/SIRS due to community acquired Gram-positive versus Gram-negative pneumonia # Community acquired Gram-positive versus Gram-negative pneumonia # Paroxysmal atrial fibrillation with secondary hypercoagulable state # Morbid obesity, BMI 39.7 kg/ m2 and history of obstructive sleep apnea # Type 2 Diabetes melitus Discharge Disposition: Home Discharge Instruct/Medications Diet: Consistent carbohydrate Activity: No Restrictions, As Tolerated Follow Up/Referral: Follow up with PCP in 1 week Medications: Levaquin 750 mg po daily for 5 days. Gabapentin 300 mg tid for 1 month Continue home meds. Discharge Statement: "Patient was advised to return to the ER or call 911 if any headaches, dizziness, shortness of breath, chest pain, abdominal pain, bleeding, fevers, or worsening of medical condition. Patient was counseled about treatment plan, medications, possible side effects, patientverbalized understanding. All questions were answered to the best of my ability. This discharge took greater then 30 minutes in planning, reviewing documentation, counseling the patient, and discussing with other team members." ASSESSMENT ASSESSMENT Assessment # Sepsis/SIRS due to community acquired Gram-positive versus Gram-negative pneumonia # Community acquired Gram-positive versus Gram-negative pneumonia # Paroxysmal atrial fibrillation with secondary hypercoagulable state # Morbid obesity, BMI 39.7 kg/ m2 and history of obstructive sleep apnea # Type 2 Diabetes delmiitus ASPEN GONSALVES RESIDENT Jun 25, 2024 15:26
== END 2024-06-25 16:05 | disposition home or self-care (01) | DRG 137 ==
LOC: ER 19:12 → OVERFLOW 23:31 → EAST 06-24 22:38
PROVIDERS: ADMIT Student in an Organized Health Care Education/Training Program; ATTEND Student in an Organized Health Care Education/Training Program
PROC: 5A09357 Assistance with Respiratory Ventilation, Less than 24 Consecutive Hours, Continuous Positive Airway Pressure (ICD-10-PCS; principal; 2024-06-25)
DX: J15.69 Pneumonia due to other Gram-negative bacteria (principal); D68.69 Other thrombophilia; E87.20 Acidosis, unspecified; J15.9 Unspecified bacterial pneumonia; E11.42 Type 2 diabetes mellitus with diabetic polyneuropathy; I48.0 Paroxysmal atrial fibrillation; E66.01 Morbid (severe) obesity due to excess calories; I10 Essential (primary) hypertension; Z68.39 Body mass index [BMI] 39.0-39.9, adult; Z90.49 Acquired absence of other specified parts of digestive tract; Z79.4 Long term (current) use of insulin; Z79.899 Other long term (current) drug therapy
CPT/HCPCS: 36415; 36600; 71045; 71250; 80048; 80053; 80162; 81001; 82805; 82962; 83605; 83880; 84484; 84702; 85025; 85379; 87040; 87426; 87804; 93005; 93306; 94640; 94660; G0378; J1815

== ENCOUNTER 2025-02-22 10:42 | Emergency (ER) | payer OTHER ==
[~2025-02-22] VITALS: Ht 180.3 cm; Wt 133.1 kg
[~2025-02-22 10:42] MED LIST: LEVO750T40 PO
[2025-02-22 10:44] VITALS: TEMP 98.5
--- NOTE | 2025-02-22 11:04 | ED.PDOC ---
History of Present Illness HPI Comments A 50 YEAR OLD FEMALE PRESENTS TO THE ED WITH COMPLAINT OF CHRONIC LOWER BACK PAIN AND NECK PAIN. PATIENT STATES SHE HAS A HISTORY OF DIABETIC NEUROPATHY AND NOTES SHE HAS CHRONIC BODY PAIN A RESULT. PATIENT REPORTS SHE ALSO HAS CHRONIC NECK AND LOWER BACK PAIN AND NOTES HER PAIN WAS AGGRAVATED OVER THE PAST 3 WEEKS DUE TO HELPING HER BEDRIDDEN MOTHER AT HOME. PATIENT NOTES SHE USUALLY TAKES NORCO 10/325 MG TO MANAGE HER CHRONIC PAIN, BUT RECENTLY RAN OUT OF HIS MEDICATION. PATIENT DENIES SADDLE ANESTHESIA, URINARY INCONTINENCE, BOWEL INCONTINENCE, FEVER, CHILLS, SHORTNESS OF BREATH, CHEST PAIN, ABDOMINAL PAIN, NAUSEA, VOMITING, HEADACHE, OR OTHER COMPLAINTS. NO OTHER SYMPTOMS OR MODIFYING FACTORS AT THIS TIME. PATIENT IS ALERT, ORIENTED X 4, AND HAS STEADY GAIT. Chief Complaint: Body Pain Time Seen by MD: 10:47 Reviewed Notes: Nurses Notes, Medications, Allergies Allergies: Coded Allergies: Codeine (Verified Allergy, Unknown, 06/23/24) Ibuprofen (Verified Allergy, Unknown, 06/23/24) Iodine (Verified Allergy, Unknown, 06/23/24) Penicillins (Verified Allergy, Unknown, 06/23/24) Home Meds Active Scripts Levofloxacin Hemihydrate (LEVOFLOXACIN) 750 Mg Tab, 1 TAB PO DAILY for 5 Days, #5 TAB Prov:ASPEN GONSALVES RESIDENT 06/25/24 Information Source: Patient Mode of Arrival: Ambulatory Severity: Moderate Timing: Weeks Duration: Since onset Prehospital treatment: None Medication Refill: For: Other (CHRONIC BODY AND BACK PAIN) Past Medical History PAST MEDICAL HISTORY: DM, HTN Past Medical History (Other): NEUROPATHY CHRONOIC LOW BACK PAIN DUE TO DDD Surgical History: Denies all surgeries WOOD BARREL RECONDITIONER History: No Pertinent WOOD BARREL RECONDITIONER History Family History Family History: Reviewed,noncontributory to illness Social History Smoker: Non-Smoker Alcohol: Denies ETOH Use Drugs: Denies Drug Use Lives In: Home Constitutional: reports: others (ANXIOUS ); denies: chills, diaphoresis, fatigue, fever, malaise, sweats, weakness EENTM: denies: blurred vision, double vision, ear bleeding, ear discharge, ear drainage, ear pain, ear ringing, eye pain, eye redness, hearing loss, mouth pain, mouth swelling, nasal discharge, nose bleeding, nose congestion, nose pain, photophobia, tearing, throat pain, throat swelling, voice changes, others Respiratory: denies: cough, hemoptysis, orthopnea, SOB at rest, shortness of breath, SOB with excertion, stridor, wheezing, others Cardiovascular: denies: chest pain, dizzy spells, diaphoresis, Dyspnea on exertion, edema, irregular heart beat, left arm pain, lightheadedness, palpitations, PND, syncope, others Gastrointestinal: denies: abdomen distended, abdominal pain, blood streaked bowels, constipated, diarrhea, dysphagia, difficulty swallowing, hematemesis, melena, nausea, poor appetite, poor fluid intake, rectal bleeding, rectal pain, vomiting, others Genitourinary: denies: abnormal vagina bleeding, burning, dyspareunia, dysuria, flank pain, frequency, hematuria, incontinence, pain, , vagina discharge, urgency, others Neurological: denies: dizziness, fainting, headache, left sided numbness, left sided weakness, numbness, paresthesia, pre-existing deficit, right sided numbness, right sided weakness, seizure, speech problems, tingling, tremors, weakness, others Musculoskeletal: reports: back pain, muscle pain, neck pain; denies: gout, joint pain, joint swelling, muscle stiffness, others Integumetry: denies: bruises, change in color, change in hair/nails, dryness, laceration, lesions, lumps, rash, wounds, others Allergic/Immunocompromised: denies: Difficulty Healing, Frequent Infections, Hives, Itching, others Hematologic/Lymphatic: denies: anemia, blood clots, easy bleeding, easy bruising, swollen glands, others Endocrine: denies: excessive hunger, excessive sweating, excessive thirst, excessive urination, flushing, intolerance to cold, intolerance to heat, unexplained weight gain, unexplained weight loss, others Psychiatric: denies: anxiety, bipolar disorder, depression, hopeless, panic disorder, schizophrenia, sleepless, suicidal, others All Other Systems: Reviewed and Negative Physical Exam General Appearance: No Apparent Distress, Normal HEENT: Normal ENT Inspection, PERRL/EOMI, Pharynx Normal, TMs Normal Neck: Full Range of Motion, Non-Tender, Normal, Normal Inspection, Supple Respiratory: Chest Non-Tender, Lungs Clear, No Accessory Muscle Use, No Respiratory Distress, Normal Breath Sounds Cardiovascular: No Edema, No JVD, No Murmur, No Gallop, Normal Peripheral Pulses, Regular Rate/Rhythm Breast Exam: Deferred Gastrointestinal: No Organomegaly, Non Tender, No Pulsatile Mass, Normal Bowel Sounds, Soft Genitalia: Deferred Pelvic: Deferred Rectal: Deferred Extremities: No calf tenderness, Normal capillary refill, Normal inspection, Normal range of motion, Non-tender, No pedal edema Musculoskeletal : Location: Bilateral Extremity Location: Back Apperance: Tenderness: Moderate (TENDERNESS AND MUSCLE SPASM ON LOW BACK, NO BONY TENDERNESS, SWELLING AND DEFORMITY. ) Neurologic: Alert, mobile disc jockey II-XII nml as Tested, No Motor Deficits, Normal Affect, Normal Mood, No Sensory Deficits Cerebellar Function: Normal Reflexes: Normal Skin: Dry, Normal Color, Warm Peripheral Pulses: 2+ carotid (R), 2+ carotid (L), 2+ dorsalis pedis (R), 2+ do rsalis pedis (L) Lymphatic: No Adenopathy Was a procedure done? Was a procedure done?: No Differential Dx Considerations may include: CHRONIC BODY PAIN HISTORY NEUROPATHY, CHRONIC LOWER BACK PAIN, PAIN MANAGEMENT, CHRONIC NECK PAIN X-Ray, Labs, Meds, VS Vital Signs Date Time Temp Pulse Resp B/P (MAP) Pulse Ox O2 Delivery O2 Flow Rate FiO2 02/22/25 11:06 20 100 151/79 02/22/25 10:44 98.5 101 18 145/82 98 98.5 Current Medications Medications (Trade) Dose Ordered Sig/Zoey Route Start Time Stop Time Status Last Admin Hydromorphone HCl (Dilaudid Injection) 2 mg ONCE ONCE IM 02/22/25 11:00 02/22/25 11:01 DC 02/22/25 11:06 Ondansetron HCl (Zofran Po) 4 mg ONCE ONCE PO 02/22/25 11:00 02/22/25 11:01 DC 02/22/25 11:07 X-Ray, Labs, Meds, VS Comment EXTERNAL MEDICAL RECORDS REVIEWED: [NONE] INDEPENDENT HISTORIANS: [NONE] SOCIAL DETERMINANTS OF HEALTH: [NONE] LABS ORDERED: NONE REVIEWED AND INTERPRETED RESULTS: NONE IMAGING ORDERED: NONE BASED ON THE PATIENT'S PERSISTENCE OF SYMPTOMS, THE PATIENT SOUGHT OUT ED CONSULT. BASED ON MY PHYSICAL EXAMINATION AND PATIENT'S HISTORY OF CHRONIC BACK PAIN, THERE IS NO NEW INJURY TO THE PATIENT'S BACK. THE PATIENT DENIES ANY N UMBNESS, WEAKNESS, TINGLING SENSATION, URINARY/BOWEL INCONTINENCE. THERE ARE NO SIGNS AND SYMPTOMS OF CAUDA EQUINA. THE PATIENT STATES THAT THE PAIN IS THE SAME WHEN THEY HAVE BACK PAIN FLARE-UP AND THAT THEY ONLY NEED PAIN MEDICATION IN THE ER. AT THIS POINT, THERE IS NO INDICATION FOR ANY IMAGING. THE PATIENT WAS ADVISED TO FOLLOW UP WITH ORTHO SPECIALIST FOR THEIR CHRONIC LOWER BACK PAIN AND PAIN MANAGEMENT DOCTOR FOR PAIN CONTROL. PATIENT WAS GIVEN DILAUDID 2 MG IM AND ZOFRAN 4 MG P.O. FOR PAIN MEDICATION. OVERALL PATIENT'S VITAL SIGNS ARE STABLE AND THE PATIENT WILL BE DISCHARGED HOME. TREATMENTS ORDERED: DILAUDID 2 MG IM, ZOFRAN 4 MG P.O. PROCEDURES PERFORMED: NONE CRITICAL CARE TIME: NONE I HAVE DISCUSSED THE PATIENT WITH THE ATTENDING PHYSICIAN DR. NOWAK AND HE AGREES WITH THE PATIENT'S PLAN OF CARE AND DISPOSITION. BASED ON HISTORY OF PRESENT ILLNESS, AND PHYSICAL EXAM, PATIENT WILL BE DISCHARGED HOME. SHARED DECISION MAKING: PATIENT INSTRUCTED TO FOLLOW UP WITH PRIMARY CARE PROVIDER IN 1-2 DAYS FOR RE-EVALUATION OF SYMPTOMS. PATIENT VERBALIZES UNDERSTANDING TO RETURN TO ED FOR NEW OR WORSENING SYMPTOMS OR IF FOLLOW UP WITH PCP CANNOT BE OBTAINED. PATIENT FEELS COMFORTABLE GOING HOME AT THIS TIME. ALL QUESTIONS ADDRESSED AT TIME OF DISCHARGE. Time of 1ST Reevaluation: 11:30 Reevaluation 1ST: Improved Patient Education/Counseling: Diagnosis, Treatment, Need For Follow Up Family Education/Counseling: Diagnosis, Treatment, Need For Follow Up Medical Screening: No EMC Exist At This Time SEPSIS Sepsis Screen Date sepsis recognized/suspect: Feb 22, 2025 Time Sepsis recognized/suspect: 1045 Recent Procedure: No On Antibiotic Therapy: No Respiratory Rate >20: No Heart Rate >90: Yes Temp<36 C (96.8 F) or >38.3 C: No SBP <90 or MAP <65 mmHG: No New Acute Mental Status Change: No Is the patient on CPAP, BIPAP,: No Vital Signs Date Time Temp Pulse Resp B/P (MAP) Pulse Ox O2 Delivery O2 Flow Rate FiO2 02/22/25 11:06 20 100 151/79 02/22/25 10:44 98.5 101 18 145/82 98 98.5 Medications Medications Dose Ordered Sig/Zoey Route Start Time Stop Time Status Last Admin Dose Admin Hydromorphone HCl 2 mg ONCE ONCE IM 02/22/25 11:00 02/22/25 11:01 DC 02/22/25 11:06 Ondansetron HCl 4 mg ONCE ONCE PO 02/22/25 11:00 02/22/25 11:01 DC 02/22/25 11:07 Departure 1 Departure Time of Disposition: 11:30 Impression: Primary Impression: Acute exacerbation of chronic low back pain Additional Impression: Pain management Disposition: HOME / SELF CARE / HOMELESS Condition: Stable Additional Instructions: FOLLOW-UP WITH PCP IN 1 TO 2 DAYS. RETURN TO ED FOR ANY NEW OR WORSENING SYMPTOMS. Discharged With: Self, Spouse Critical Care Note Critical Care Time?: No Stability Stability form required: No I personally scribed for MAHI GUIDRY ([email or web address]) on 02/22/25 at 11:04. Electronically submitted by Leroy Recio ([email or web address]). I personally scribed for MAHI GUIDRY ([email or web address]) on 02/22/25 at 11:18. Electronically submitted by Leroy Recio ([email or web address]). MAHI GUIDRY Feb 22, 2025 11:04
[2025-02-22] MEDS: HYDROmorphone HCL 2 MG/ML VL/or syr IM ONE (11:06)
[2025-02-22] MEDS: ONDANSETRON ODT 4 MG TAB PO ONE (11:07)
[2025-02-22 11:24] VITALS: BP 137/77; PULSE 97; RESP 18; O2SAT 97
== END 2025-02-22 11:23 | disposition home or self-care (01) ==
LOC: ER 10:46
DX: G89.29 Other chronic pain (principal); M54.50 Low back pain, unspecified; E11.40 Type 2 diabetes mellitus with diabetic neuropathy, unspecified; I10 Essential (primary) hypertension; Z88.0 Allergy status to penicillin; Z88.5 Allergy status to narcotic agent; Z88.6 Allergy status to analgesic agent; Z88.8 Allergy status to other drugs, medicaments and biological substances
CPT/HCPCS: 96372; 99283; J1171; Q0162